=== PATIENT | male | born 1965 | race Caucasian/White ===

== ENCOUNTER 2022-02-05 18:39 | Inpatient (IN) | payer BC ==
[~2022-02-05] VITALS: Ht 193 cm; Wt 79.3 kg
[2022-02-05 20:05] LABS: BASOPHILS % (AUTO) 0.2 % (0.0-2.0); EOSINOPHILS % (AUTO) 0.2 % (1.0-6.0); HEMATOCRIT 46.7 % (41-53); HEMOGLOBIN 16.1 g/dL (13.5-17.5); LYMPHOCYTES # (AUTO) 2.2 K/uL (1.0-4.8); LYMPHOCYTES % (AUTO) 22.9 % (22.0-44.0); MEAN CORPUSCULAR HEMOGLOBIN 31.1 pg (26.0-34.0); MEAN CORPUSCULAR HGB CONC 34.5 G/dL (31.0-37.0); MEAN CORPUSCULAR VOLUME 90 fL (80-100); MONOCYTES # (AUTO) 0.7 K/uL (0.1-1.0); MONOCYTES % (AUTO) 7.5 % (2.0-9.0); NEUTROPHILS # (AUTO) 6.6 K/uL (1.8-7.7); NEUTROPHILS % (AUTO) 69.2 % (40.0-70.0); PLATELET COUNT (AUTO) 221 K/uL (150-450); RED BLOOD CELL COUNT(AUTO) 5.18 MIL/uL (4.50-5.90); RED CELL DISTRIBUTION WIDTH 13.2 % (11.5-14.5)
[2022-02-05] MEDS ORDERED: HYDR50CA7 PO (20:13)
[2022-02-05] MEDS ORDERED: PANT-31 PO (20:13)
[2022-02-05] MEDS ORDERED: MIRT-89 PO (20:13)
[2022-02-05] MEDS ORDERED: MESA400C2 PO (20:13)
[2022-02-05] MEDS ORDERED: OLME20TA10 PO (20:13)
[2022-02-05] MEDS ORDERED: FAMO20 PO (20:13)
[2022-02-05] MEDS ORDERED: OMEP20 PO (20:13)
[2022-02-05] MEDS ORDERED: QUET25TA PO (20:13)
[2022-02-05 20:14] LABS: ANION GAP 4 mmol/L (8-16); CALCIUM, TOTAL 9.2 mg/dL (8.8-10.5); CARBON DIOXIDE 33 mmol/L (22-29); CHLORIDE 97 mmol/L (98-107); GLOMERULAR FILTR. RATE CALC 53 mL/min (>60); GLUCOSE,RANDOM 104 mg/dL (70-110); POTASSIUM 3.4 mmol/L (3.5-5.1); SODIUM SERUM 134 mmol/L (136-145); UREA NITROGEN, BLOOD 17 mg/dL (7-18)
[2022-02-05 20:19] LABS: ALANINE AMINOTRANSFERASE 36 U/L (12-78); ALBUMIN 4.8 g/dL (3.4-5.0); ALKALINE PHOSPHATASE 94 U/L (46-116); ASPARTATE AMINOTRANSFERASE 30 U/L (15-37); BILIRUBIN,TOTAL 1.6 mg/dL (0.1-1.0); TOTAL PROTEIN, SERUM 8.3 g/dL (6.4-8.2)
[2022-02-05 20:36] LABS: AMPHET/METH SCREEN,URINE NEGATIVE (NEGATIVE); BARBITURATE SCREEN, URINE NEGATIVE (NEGATIVE); BENZODIAZEPINES SCREEN,URINE NEGATIVE (NEGATIVE); CANNABINOID SCREEN,URINE NEGATIVE (NEGATIVE); COCAINE SCREEN,URINE NEGATIVE (NEGATIVE); METHADONE SCREEN, URINE NEGATIVE (NEGATIVE); OPIATE SCREEN,URINE NEGATIVE (NEGATIVE); PHENCYCLIDINE SCREEN,URINE NEGATIVE (NEGATIVE)
[2022-02-05 21:36] LABS: COVID AG,FIA SOURCE NASAL SWAB
[2022-02-05] MEDS ORDERED: POTASSIUM CHLORIDE 10% 40 MEQ/30 ML LIQUID UDCUP PO ONE (22:00)
[2022-02-05] MEDS ORDERED: MIRTAZAPINE 15 MG TABLET PO ONE (22:15)
[2022-02-05] MEDS ORDERED: QUEtiapine FUMARATE 25 MG TABLET PO ONE (22:15)
[2022-02-05] MEDS ORDERED: LORazepam 2 MG TABLET PO PRN (23:45)
[2022-02-05] MEDS ORDERED: HALOPERIDOL 5 MG TABLET PO PRN (23:45)
[2022-02-06 01:10] VITALS: BP 158/91
[2022-02-06] MEDS ORDERED: INFLUENZA VIRUS VACCINE QVS 2021-22 (6MO+)/PF 60 MCG/0.5 ML SYRINGE IM. ONE (04:45)
[2022-02-06] MEDS ORDERED: PNEUMOCOCCAL VACCINE POLYVALENT 0.5 ML VIAL [PPSV23] IM. ONE (04:45)
[2022-02-06] MEDS ORDERED: ACETAMINOPHEN 325 MG TABLET PO PRN (06:30)
[2022-02-06] MEDS ORDERED: PETROLATUM,WHITE 28 GM JELLY TP PRN (06:30)
[2022-02-06] MEDS ORDERED: BENZOCAINE/MENTHOL LOZENGE PO PRN (06:30)
[2022-02-06] MEDS ORDERED: BACITRACIN 28 GM OINTMENT TP PRN (06:30)
[2022-02-06] MEDS ORDERED: OMEPRAZOLE 20 MG CAPSULE PO PRN (06:30)
[2022-02-06] MEDS ORDERED: MAGNESIUM HYDROXIDE SUSPENSION 30 ML UDCUP PO PRN (06:30)
[2022-02-06] MEDS ORDERED: LOPERAMIDE HCL 2 MG CAPSULE PO PRN (06:30)
[2022-02-06] MEDS ORDERED: ALBUTEROL SULFATE HFA 90 MCG/PUFF 8 GM INHALER IH PRN (06:30)
[2022-02-06] MEDS ORDERED: IBUPROFEN 600 MG TABLET PO PRN (06:30)
[2022-02-06] MEDS ORDERED: ONDANSETRON HCL 4 MG TABLET PO PRN (06:30)
[2022-02-06] MEDS ORDERED: DOCUSATE SODIUM 100 MG CAPSULE PO PRN (06:30)
[2022-02-06] MEDS ORDERED: CloNIDine HCL 0.1 MG TABLET PO PRN (06:30)
[2022-02-06] MEDS ORDERED: MAG HYDROX/AL HYDROX/SIMETH ES 30 ML SUSPENSION UDCUP PO PRN (06:30)
[2022-02-06 06:50] VITALS: BP 149/79
[2022-02-06 08:14] VITALS: BP 140/68
[2022-02-06] MEDS: FAMOTIDINE 20 MG TABLET PO SCH (08:36)
[2022-02-06] MEDS ORDERED: OLMESARTAN MEDOXOMIL 20 MG TABLET PO SCH (09:00)
[2022-02-06] MEDS ORDERED: MESALAMINE 400 MG DR CAPSULE PO ONE (09:00)
[2022-02-06] MEDS ORDERED: MESA1.2T3 PO (11:30)
[2022-02-06] MEDS ORDERED: OLME5TAB6 PO (11:30)
[2022-02-06] MEDS ORDERED: AMIT10TA6 PO (11:30)
[2022-02-06] MEDS ORDERED: GABA-1181 PO (11:30)
[2022-02-06] MEDS: MESALAMINE 400 MG DR CAPSULE PO SCH ×2 (12:17→16:43)
[2022-02-06 16:12] VITALS: BP 147/88
[2022-02-06] MEDS: ZOLPIDEM TARTRATE 10 MG TABLET PO PRN (20:39)
[2022-02-07] MEDS: FAMOTIDINE 20 MG TABLET PO SCH (07:50)
[2022-02-07] MEDS: MESALAMINE 400 MG DR CAPSULE PO SCH ×3 (07:51→17:00)
[2022-02-07 08:06] VITALS: BP 132/83
[2022-02-07 08:20] LABS: ALANINE AMINOTRANSFERASE 30 U/L (12-78); ALKALINE PHOSPHATASE 77 U/L (46-116); ANION GAP 7 mmol/L (8-16); ASPARTATE AMINOTRANSFERASE 28 U/L (15-37); BILIRUBIN,TOTAL 1.2 mg/dL (0.1-1.0); CALCIUM, TOTAL 8.5 mg/dL (8.8-10.5); CARBON DIOXIDE 31 mmol/L (22-29); CHLORIDE 100 mmol/L (98-107); GLOMERULAR FILTR. RATE CALC > 60 mL/min (>60); GLUCOSE,RANDOM 102 mg/dL (70-110); PHOSPHORUS 3.9 mg/dL (2.5-4.9); POTASSIUM 3.9 mmol/L (3.5-5.1); SODIUM SERUM 138 mmol/L (136-145); TOTAL PROTEIN, SERUM 7.3 g/dL (6.4-8.2); UREA NITROGEN, BLOOD 21 mg/dL (7-18)
[2022-02-07] MEDS: OLMESARTAN MEDOXOMIL 5 MG PO SCH (09:00)
[2022-02-07] MEDS ORDERED: DIATRIZOATE MEGLU/SOD 660/100 MG/ML 120 ML BOTTLE ONE (11:58)
[2022-02-07 16:04] VITALS: BP 112/61
[2022-02-07] MEDS: TraZODone HCL 50 MG TABLET PO SCH (21:00)
[2022-02-07] MEDS: ZOLPIDEM TARTRATE 10 MG TABLET PO PRN (21:10)
[2022-02-08 08:07] VITALS: BP 142/91
[2022-02-08] MEDS: MESALAMINE 400 MG DR CAPSULE PO SCH ×3 (08:08→16:17)
[2022-02-08] MEDS: BusPIRone HCL 5 MG TABLET PO SCH ×4 (08:08→16:17)
[2022-02-08] MEDS: HydrOXYzine PAMOATE 25 MG CAPSULE PO SCH ×4 (08:08→16:18)
[2022-02-08] MEDS: FAMOTIDINE 20 MG TABLET PO SCH (08:09)
[2022-02-08] MEDS: OLMESARTAN MEDOXOMIL 5 MG PO SCH (08:09)
[2022-02-08] MEDS: DIVALPROEX SODIUM 500 MG DR TABLET PO SCH (16:18)
[2022-02-08 16:53] VITALS: BP 150/85
[2022-02-08] MEDS: TraZODone HCL 50 MG TABLET PO SCH (20:05)
[2022-02-08] MEDS: MIRTAZAPINE 15 MG TABLET PO SCH (20:06)
[2022-02-08] MEDS: QUEtiapine FUMARATE 25 MG TABLET PO SCH (20:06)
[2022-02-08] MEDS: ZOLPIDEM TARTRATE 10 MG TABLET PO PRN (20:31)
[2022-02-09] MEDS: MESALAMINE 400 MG DR CAPSULE PO SCH ×3 (08:32→16:03)
[2022-02-09] MEDS: FAMOTIDINE 20 MG TABLET PO SCH (08:37)
[2022-02-09] MEDS: HydrOXYzine PAMOATE 25 MG CAPSULE PO SCH ×3 (08:38→17:00)
[2022-02-09] MEDS: BusPIRone HCL 5 MG TABLET PO SCH ×3 (08:38→16:02)
[2022-02-09] MEDS: DIVALPROEX SODIUM 500 MG DR TABLET PO SCH ×2 (08:38→16:03)
[2022-02-09] MEDS: OLMESARTAN MEDOXOMIL 5 MG PO SCH ×2 (08:39→15:57)
[2022-02-09 16:35] VITALS: BP 161/94
[2022-02-09] MEDS: MIRTAZAPINE 15 MG TABLET PO SCH (20:08)
[2022-02-09] MEDS: TraZODone HCL 50 MG TABLET PO SCH (20:09)
[2022-02-09] MEDS: QUEtiapine FUMARATE 25 MG TABLET PO SCH (20:10)
[2022-02-09] MEDS: ZOLPIDEM TARTRATE 10 MG TABLET PO PRN (20:29)
[2022-02-10] MEDS: BusPIRone HCL 5 MG TABLET PO SCH ×2 (07:59→13:00)
[2022-02-10] MEDS: DIVALPROEX SODIUM 500 MG DR TABLET PO SCH (07:59)
[2022-02-10] MEDS: HydrOXYzine PAMOATE 25 MG CAPSULE PO SCH ×2 (08:00→13:00)
[2022-02-10] MEDS: FAMOTIDINE 20 MG TABLET PO SCH (08:00)
[2022-02-10] MEDS: MESALAMINE 400 MG DR CAPSULE PO SCH ×2 (08:00→13:00)
[2022-02-10] MEDS: OLMESARTAN MEDOXOMIL 5 MG PO SCH (08:00)
[2022-02-10 08:27] VITALS: BP 154/94
[2022-02-10] MEDS ORDERED: HYDR-4808 PO ×2 (09:12→09:49)
[2022-02-10] MEDS ORDERED: MIRT-89 PO ×2 (09:12→09:52)
[2022-02-10] MEDS ORDERED: QUET25TA36 PO ×2 (09:12→09:52)
[2022-02-10] MEDS ORDERED: DIVA-112 PO ×2 (09:12→09:49)
[2022-02-10] MEDS ORDERED: TRAZ-252 PO ×2 (09:12→09:53)
[2022-02-10] MEDS ORDERED: BUSP5TAB20 PO ×2 (09:12→09:48)
== END 2022-02-10 11:50 | disposition home or self-care (01) | DRG 881 ==
LOC: EMS 18:42 → 3EC 02-06 00:11
PROVIDERS: ADMIT Psychiatry & Neurology Psychiatry; ATTEND Psychiatry & Neurology Psychiatry
DX: F32.9 Major depressive disorder, single episode, unspecified (principal); E87.1 Hypo-osmolality and hyponatremia; K21.9 Gastro-esophageal reflux disease without esophagitis; Z20.822 Contact with and (suspected) exposure to COVID-19; E87.6 Hypokalemia; F41.9 Anxiety disorder, unspecified; I12.9 Hypertensive chronic kidney disease with stage 1 through stage 4 chronic kidney disease, or unspecified chronic kidney disease; N18.2 Chronic kidney disease, stage 2 (mild); Z91.14 Patient's other noncompliance with medication regimen; K59.00 Constipation, unspecified
CPT/HCPCS: 80053; 83735; 84100; 85025; 99285; G0480; Q9967